=== PATIENT | male | born 1985 | race American Indian/Alaskan Native ===

== ENCOUNTER 2022-04-28 12:31 | Emergency (ER) | payer MEDICAID | END 2022-04-28 14:18 | disposition home or self-care (01) | LOC: DL.ED 12:31 → MERGE 12:31 → DL.ED 14:18 | DX: Z53.21 Procedure and treatment not carried out due to patient leaving prior to being seen by health care provider (principal) ==

== ENCOUNTER 2022-05-18 20:11 | Emergency (ER) | payer MEDICAID | END 2022-05-19 01:05 | disposition home or self-care (01) | LOC: DL.ED 20:11 | DX: M25.511 Pain in right shoulder (principal); F17.210 Nicotine dependence, cigarettes, uncomplicated; Z90.49 Acquired absence of other specified parts of digestive tract; W18.39XA Other fall on same level, initial encounter | CPT/HCPCS: 73030-RT; 99283 ==

== ENCOUNTER 2022-10-29 14:47 | Emergency (ER) | payer MEDICAID ==
[2022-10-29] MEDS ORDERED: Acetaminophen 500 MG Tab PO ONE (19:13)
== END 2022-10-29 19:27 | disposition home or self-care (01) ==
LOC: DL.ED 14:47
DX: S89.82XA Other specified injuries of left lower leg, initial encounter (principal); X50.9XXA Other and unspecified overexertion or strenuous movements or postures, initial encounter
CPT/HCPCS: 73562-LT; 99282; 99283; A9270-GY

== ENCOUNTER 2023-09-09 02:17 | Emergency (ER) | payer OTHER, MEDICAID ==
[2023-09-09] MEDS ORDERED: Sodium Chloride 0.9% 10 ML Syringe FLUSH PRN (03:17)
[2023-09-09 03:33] LABS: BASOPHILS PERCENT AUTO 0.6 % (0.0-1.0); EOSINOPHILS PERCENT AUTO 4.4 % (1.0-3.0); HEMATOCRIT 39.2 % (40.0-54.0); HEMOGLOBIN 13.1 g/dL (14.0-18.0); LYMPHOCYTES PERCENT AUTO 31.6 % (20.5-50.1); MEAN CORPUSCULAR HEMOGLOBIN 33.2 pg (27.0-34.0); MEAN CORPUSCULAR HGB CONC 33.4 g/dL (33.0-35.0); MEAN CORPUSCULAR VOLUME 99.5 fL (80-100); MONOCYTES PERCENT AUTO 9.8 % (2-8); NEUTROPHILS PERCENT AUTO 53.6 % (42.2-75.2); PLATELET COUNT,PLT 201 10^3/uL (150-450); RED BLOOD CELL COUNT 3.94 10^6/uL (4.6-6.2); WHITE BLOOD CELL COUNT,WBC 6.6 10^3/uL (5.0-10.0)
[2023-09-09 03:51] LABS: ALBUMIN 3.1 g/dL (3.4-5.0); ANION GAP 12.4 mEq/L (7-13); BILIRUBIN TOTAL 0.3 mg/dL (0.2-1.0); CREATININE 0.88 mg/dL (0.70-1.30); EST CRCL DRUG DOSING (CG) 131.15 mL/min; POTASSIUM,K 3.4 mmol/L (3.5-5.1); PROTEIN TOTAL,TP 7.3 g/dL (6.4-8.2)
[2023-09-09 03:52] LABS: A/G RATIO 0.74
== END 2023-09-09 05:22 | disposition home or self-care (01) ==
LOC: DL.ED 02:17
DX: M54.2 Cervicalgia (principal); M79.641 Pain in right hand; R60.0 Localized edema; Z98.890 Other specified postprocedural states; V49.40XA Driver injured in collision with unspecified motor vehicles in traffic accident, initial encounter
CPT/HCPCS: 36415; 70450; 72125; 73130-RT; 80053; 80307; 85025; 99284